=== PATIENT | male | born 1980 | race Caucasian/White ===

== ENCOUNTER 2018-04-02 20:22 | Emergency (ER) | payer BC, SELFPAY ==
[2018-04-02 20:23] VITALS: BP 143/87; PULSE 83; RESP 16; TEMP 36.9; O2SAT 100; BMI 27.3
--- NOTE | 2018-04-02 21:11 | ED.VISSUMM ---
- ER Visit Summary Date of Service: 04/02/18 Chief Complaint: Left hand laceration History of Present Illness: The patient is a 37 M who reports he fell from an [employer]V late Monday night, 2 days ago, and fell into a [facility] bed. He is a laceration to his left hand. He initially had cleansed the wound and glued it. Tetanus is up-to-date. Physical Examination: Vital signs unremarkable. Patient is in no acute distress. Left upper extremity examination was a 3 cm long laceration to the webspace between the thumb and the index finger. There is no sign of infection. Full range of motion with good cap refill and sensation noted to all digits. Test Results: [] Emergency Department Course and Treatment: I did discuss with patient that we are outside window to safely suture the wound. He voices understanding. Wound is soaked and thoroughly cleansed. Dressing is applied. He is given Bactrim and Keflex. He declines anything for pain. Treatment Plan: [] Disposition: Discharge Impression: Left hand laceration, old-not sutured This note was generated with [employer] dictation software. It may contain incorrect words, spelling, and punctuation that were not noted in review of the chart prior to signing ED Disposition - Plan for ED Patient: Disposition: Home or Assisted Living Chief Complaint: Laceration Instructions: ED Laceration Hand Prescriptions: Cephalexin [Keflex] 500 mg PO Q6 #40 capsule Smz/Tmp Ds [Bactrim Ds] 1 tablet PO BID #20 tablet Referrals: Bruno Mcdonnell MD [[facility]] - 1 Week
[2018-04-02] MEDS: Smz/Tmp Ds Tablet 1 TABLET PO (21:25)
[2018-04-02] MEDS: Cephalexin 250 MG Capsule 500 MG PO (21:25)
== END 2018-04-02 21:29 | disposition home or self-care (01) ==
PROVIDERS: Emergency Provider Emergency Medicine
DX: S61.412D Laceration without foreign body of left hand, subsequent encounter (principal); V86.59XD Driver of other special all-terrain or other off-road motor vehicle injured in nontraffic accident, subsequent encounter; Z87.891 Personal history of nicotine dependence
CPT/HCPCS: 99283